=== PATIENT | female | born 1965 | race Caucasian/White ===

== ENCOUNTER 2025-05-28 14:52 | Observation (INO) ==
--- NOTE | 2025-05-28 15:31 | XRay Report ---
XR chest 1V portable CLINICAL HISTORY: Chest pain, nonspecific COMPARISON STUDY: 02/25/2023 FINDINGS: Heart size and pulmonary vasculature are normal. No consolidation or pleural effusion. No p neumothorax. IMPRESSION: No acute findings. ACT 112: Negative or not required by law. Electronically signed by: Elías Montoya M.D. 05/28/2025 3:30 PM
[2025-05-28 15:33] LABS: Hematocrit (blood only) 38.6 % (37.0-47.0); Hemoglobin 13.1 g/dl (12.0-16.0); Immature Granulocytes # (auto) 0.03 K/uL (0.01-0.20); Immature Granulocytes % (auto) 0.4 %; Mean Corpuscular Hemoglobin 27.8 pg (25.0-34.0); Mean Corpuscular Volume 81.8 fL (80.0-100.0); Platelet Count 281 K/uL (130-400); RDW Standard Deviation 43.2 fL (36.4-46.3); Red Blood Count 4.72 M/uL (4.20-5.40); White Blood Count 8.43 K/ul (4.8-10.8)
[2025-05-28 15:49] LABS: Anion Gap 9.0 (3-11); Blood Urea Nitrogen 17.0 mg/dl (6-23); Calcium 8.8 mg/dl (8.6-10.3); Carbon Dioxide 23.0 mmol/L (21-32); Chloride 108.0 mmol/L (98-107); Creatinine Clr Calc Pharmacy 90.4 ml/min; Glucose 97.0 mg/dl (70-99(Fasting)); Lipase 22.0 U/L (11-82); Potassium 3.7 mmol/L (3.5-5.1); Sodium 140.0 mmol/L (136-145)
[2025-05-28 16:04] LABS: INR 0.9 (0.9-1.1); Partial Thromboplastin Time 26 Seconds (21-31); Prothrombin Time 9.9 Seconds (9.0-12.0)
--- NOTE | 2025-05-28 16:15 | Emergency Department Note ---
History of Present Illness General Chief Complaint: Chest Pain Time Seen by Provider: 05/28/25 15:02 History of Present Illness Provider Complaint: chest pain Onset (ago): hour(s) 1 Duration: now resolved Onset: during exertion Pain Location: left chest Pain Radiation: none Severity: moderate Current Pain Intensity: 0 Quality: + sharp Relieved By: + nitroglycerin and + rest Exacerbated By: + exertion Context: no recent illness, no recent surgery, no recent immobilization, no recent travel, no trauma/injury or no history of DVT/PE Associated symptoms: no nausea, no vomiting, no dyspnea, no syncope, no palpitations, no fever, no cough or no leg swelling Treatments prior to arrival: aspirin and nitroglycerin Related Data On Oral Contraceptives: No Home Medications Medication Instructions Recorded Confirmed Type bupropion HCl 150 mg tablet,12 hr 150 mg PO BID 01/30/19 03/02/20 History sustained-release venlafaxine 150 mg 150 mg PO QAM 01/30/19 03/02/20 History capsule,extended release 24 hr Allergies Allergy/AdvReac Type Severity Reaction Status Date / Time No Known Allergies Allergy Unverified 03/02/20 15:16 Past Med/Surg History Problem List (Updated 05/28/25 @ 16:21 by Dionisio Rios MD) Chest pain (Acute) Tobacco abuse Anxiety Medical History (Updated 05/28/25 @ 16:21 by Dionisio Rios MD) Tobacco use Depression Anxiety Surgical History S/P section Family History Other Family history non-contributory Social History Smoking Status: Current every day smoker Tobacco Type: Cigarettes Hx Alcohol Use: No Hx Substance Use: No Preferred Language: Ivorian Current Living Situation: Alone current occupational status: unemployed Feels Safe at Home: No Physical Exam Vital Signs Vital Signs - 24 hr 05/28/25 14:58 05/28/25 15:30 05/28/25 15:35 Temperature 36.5 C Temperature Source Oral Pulse Rate 84 78 80 Respiratory Rate 15 21 Respiratory Effort / Characteristics Non-Labored Spontaneous Respiratory Depth Normal Respiratory Pattern Regular Blood Pressure 146/94 H 138/89 Blood Pressure Mean 111 105 Pulse Oximetry 93 93 Oxygen Delivery Method Room Air Room Air Sepsis Recent Fever Within 48 Hours No Sepsis New/Unexplained Change in Mental Status N/A Sepsis Action Taken by Nursing No Action Required 05/28/25 16:00 05/28/25 16:12 Temperature Temperature Source Pulse Rate 80 Respiratory Rate 15 Respiratory Effort / Characteristics Respiratory Depth Respiratory Pattern Blood Pressure 149/86 H Blood Pressure Mean 107 Pulse Oximetry 95 Oxygen Delivery Method Room Air Sepsis Recent Fever Within 48 Hours Sepsis New/Unexplained Change in Mental Status Sepsis Action Taken by Nursing Physical Exam GENERAL: oriented to person, place, and time. appears well-developed and well- nourished. HENT: Exam performed. - Head: Normocephalic and atraumatic. EYES: Conjunctivae and EOM are normal. Right eye exhibits no discharge. Left eye exhibits no discharge. No scleral icterus. NECK: Normal range of motion. Neck supple. No JVD present. CV: Normal rate, regular rhythm, normal heart sounds and intact distal pulses. There is no peripheral edema. Palpable radial pulses bue. PULM/CHEST: Effort normal and breath sounds normal. No respiratory distress. No stridor. no wheezes. no rales. ABD: The abdomen is soft. There is no tenderness. NEURO: Motor and sensation grossly intact. SKIN: Skin is warm and dry. He is not diaphoretic. PSYCH: normal mood and affect. Behavior is normal. Judgment and thought content normal. Course Course 1502: The patient was evaluated in room B6. A complete history and physical exam was performed Cardiac monitoring: An order was placed for continuous cardiac monitoring. The monitor shows a rate of 80 with sinus rhythm interpreted by me 1617: Vital signs stable. Patient not reporting any chest pain at this time. Labs and imaging are unremarkable. Moderate heart score. Patient will be admitted for chest pain rule out ACS. Discussed case with Sahara Wilson [facility] hospitalist team who states admit to Dr. Gonzalez. HEART Score for Major Cardiac Events from [email or web address] on 05/28/2025 All calculations should be rechecked by clinician prior to use RESULT SUMMARY: 4 points Moderate Score (4-6 points) Risk of MACE of 12-16.6%. INPUTS: History > 2 = Highly suspicious EKG > 0 = Normal Age > 1 = 45-64 Risk factors > 1 = 1-2 risk factors Initial troponin > 0 = <=ormal limit Medical Decision Making Laboratory Data Attestation: I reviewed the patient's lab results. 05/28/25 15:15 05/28/25 15:15 Labs: Lab Results 05/28/25 Range/Units 15:15 WBC 8.43 (4.8-10.8) K/ul RBC 4.72 (4.20-5.40) M/uL Hgb 13.1 (12.0-16.0) g/dl Hct 38.6 (37.0-47.0) % MCV 81.8 (80.0-100.0) fL MCH 27.8 (25.0-34.0) pg MCHC 33.9 (32.0-36.0) g/dL RDW Std Deviation 43.2 (36.4-46.3) fL RDW Coeff of Natty 14.6 H (11.5-14.5) % Plt Count 281 (130-400) K/uL MPV 9.6 (9.4-12.4) fL Immature Gran % (Auto) 0.4 % Neut % (Auto) 65.3 % Lymph % (Auto) 24.1 % [place] % (Auto) 5.7 % Eos % (Auto) 3.9 % Baso % (Auto) 0.6 % Neut # (Auto) 5.51 (1.40-6.50) K/uL Lymph # (Auto) 2.03 (1.20-3.40) K/uL [place] # (Auto) 0.48 (0.11-0.59) K/uL Eos # (Auto) 0.33 (0.00-0.50) K/uL Baso # (Auto) 0.05 (0.00-0.20) K/uL Immature Gran # (Auto) 0.03 (0.01-0.20) K/uL PT 9.9 (9.0-12.0) Seconds INR 0.9 (0.9-1.1) APTT 26 (21-31) Seconds PTT Ratio 1.0 Sodium 140 (136-145) mmol/L Potassium 3.7 (3.5-5.1) mmol/L Chloride 108 H (98-107) mmol/L Carbon Dioxide 23 (21-32) mmol/L Anion Gap 9 (3-11) BUN 17 (6-23) mg/dl Creatinine 0.80 (0.6-1.2) mg/dl Est Cr Clr Drug Dosing 90.4 ml/min eGFR 84.82 BUN/Creatinine Ratio 21.3 H (10-20) Glucose 97 (70-99(Fasting)) mg/dl Calcium 8.8 (8.6-10.3) mg/dl Troponin I High Sens 3.8 (0-14) pg/ml Lipase 22 (11-82) U/L Imaging Data Chest x-ray: Attestation: I personally reviewed and interpreted this imaging study as follows: My impression: Chest x-ray negative. Airway clear. No pneumothorax. No consolidation. No cardiomegaly or cephalization.. No free air under the diaphragm. No fractures of the skeletal structures. Radiologist's impression: XR chest 1V portable CLINICAL HISTORY: Chest pain, nonspecific COMPARISON STUDY: 02/25/2023 FINDINGS: Heart size and pulmonary vasculature are normal. No consolidation or pleural effusion. No pneumothorax. IMPRESSION: No acute findings. ACT 112: Negative or not required by law. Electronically signed by: Elías Montoya M.D. 05/28/2025 3:30 PM Dictated: 05/28/25 1529 Transcribed: 05/28/25 1529 ECG Data Attestation: I personally reviewed and interpreted this ECG as follows: Rate (beats per minute): 83 Rhythm: normal sinus Findings: no ST depression, no ST elevation or no prolonged QT Additional Comments: Left ventricular hypertrophy [facility] Narrative 1502: The patient was evaluated in room B6. A complete history and physical exam was performed Cardiac monitoring: An order was placed for continuous cardiac monitoring. The monitor shows a rate of 80 with sinus rhythm interpreted by me 1617: Vital signs stable. Patient not reporting any chest pain at this time. Labs and imaging are unremarkable. Moderate heart score. Patient will be admitted for chest pain rule out ACS. Discussed case with Sahara Patel hospitalist team who states admit to Dr. Gonzalez. HEART Score for Major Cardiac Events from [email or web address] on 05/28/2025 All calculations should be rechecked by clinician prior to use RESULT SUMMARY: 4 points Moderate Score (4-6 points) Risk of MACE of 12-16.6%. INPUTS: History > 2 = Highly suspicious EKG > 0 = Normal Age > 1 = 45-64 Risk factors > 1 = 1-2 risk factors Initial troponin > 0 = <=ormal limit Impression & Plan Chest pain Discharge Plan Visit Data Chief Complaint: Chest Pain ED Provider: Dionisio Rios Discharge Problem: Chest pain Patient Disposition: Being Evaluated by Hospitalist Condition: Fair Forms Stand Alone Forms: [employer] Prescriptions Prescriptions: No Action bupropion HCl 150 mg tablet sustained-release 12 hr 150 mg PO BID venlafaxine 150 mg capsule,extended release 24hr 150 mg PO QAM Referrals Referrals: Cory Wilson [Primary Care Provider] - Discharge Problem: Chest pain Qualifiers: Chest pain type: unspecified Qualified Code(s): R07.9 - Chest pain, unspecified
--- NOTE | 2025-05-28 16:19 | History & Physical Report ---
Date of Service May 28, 2025 Assessment & Plan (1) Chest pain: (2) Tobacco use disorder: Plan: This is a 60yo F with PMH of mood disorder and tobacco use for 25+ years who presents with CP starting an hour prior to arrival. R/o ACS; risk factors include obesity, 25+ pack years still smoking 1 ppd Initial troponin negative EKG- sinus rhythm with sinus arrhythmia no ST elevation CXR- No acute findings Trend serial cardiac enzymes overnight, check 2D echo, repeat EKG in am Routine cardiology consult NPO at midnight for anticipated stress test (may need dobutamine stress given mobility issues with recent knee surgery) Lipid panel, a1c in AM (3) Anxiety: (4) Depression: Plan: Continue venlafaxine, bupropion DVT Ppx: SQ heparin Code status: FULL PCP: Steve Dispo: Observation PCU Patient seen in collaboration with Dr. Gonzalez. Please see addendum. I spent a total of 60 minutes coordinating, documenting, and providing care for this patient excluding time spent in the performance of separately billed services or time spent by another provider/QHP. History of Present Illness Chief Complaint: CP Primary Care Provider: Cory Wilson This is a 60yo F with PMH of mood disorder and tobacco use for 25+ years who presents with CP starting an hour prior to arrival. Patient was walking her dog and developed 6 out of 10 substernal chest pain with associated diaphoresis lasting for 10 minutes. Denies any radiation to arms or jaw. No nausea, vomiting or shortness of breath. Improved with rest but did not completely resolve until patient received nitro from EMS upon their arrival. Also received aspirin en route. Pain has not recurred at rest. Patient has 25+ pack-year history and continues to smoke 1 pack/day. Denies any known personal history of heart disease or family. Does describe what sounds like a cardiac stress echo performed at [facility] 10 years ago that was normal. No F/C, lightheadedness, SOB, N/V, abd pain, dysuria, diarrea or constipation. Did undergo L knee surgery in January and is trying to walk more but still with impaired mobility, deconditioning. Allergies Allergy/AdvReac Type Severity Reaction Status Date / Time No Known Allergies Allergy Unverified 03/02/20 15:16 Home Medications Medication Instructions Recorded Confirmed Type bupropion HCl 150 mg tablet,12 hr 150 mg PO BID 01/30/19 05/28/25 History sustained-release venlafaxine 150 mg 150 mg PO QAM 01/30/19 05/28/25 History capsule,extended release 24 hr Past Med/Surg History Problem List (Updated 05/28/25 @ 16:57 by Sahara Wilson PA-C) Chest pain (Acute) Anxiety Medical History (Updated 05/28/25 @ 16:57 by Sahara Wilson PA-C) Tobacco use disorder Depression Anxiety Surgical History H/O knee surgery S/P section Family History Other Diabetes Denies family history of Coronary heart disease Social History Smoking Status: Current every day smoker Tobacco Type: Cigarettes packs per day: 1; Hx Alcohol Use: No Hx Substance Use: No Preferred Language: Swazi Current Living Situation: Alone current occupational status: unemployed Feels Safe at Home: No Review of Systems Review of Systems: At least ten systems reviewed and negative except as noted in the HPI. Physical Exam Physical Exam: General Appearance: WD/WN, vitals as above, NAD, sitting up in bed, obese Head: normocephalic, atraumatic Eyes: normal inspection, PERRL ENT: external ear and nose normal, oropharynx normal Neck: normal visual inspection Respiratory: normal respiratory effort, lungs clear to auscultation, no wheeze, rales, rhonchi. No accessory muscle use Cardiovascular: regular rate, rhythm, normal peripheral pulses, trace edema. Vessels: no JVD Chest: normal inspection of chest Abdomen/GI: normal bowel sounds, soft, nontender Extremities/Musculoskeletal: no cyanosis or clubbing, extremities motor strength 5/5 Neurologic: PERRL, EOMI, accommodation nl, no face palsy, no dysarthria, CN's II-XI intact bilaterally and moves all extremities Psychiatric: A+Ox3, euthymic affect Skin: no rashes, normal color, warm/dry Results & Data Results & Data Vital Signs (Past 12 Hours) Vital Signs Temp Pulse Resp BP Pulse Ox O2 Del Method 05/28/25 16:12 80 15 95 Room Air 05/28/25 16:00 149/86 H 05/28/25 15:35 80 05/28/25 15:30 78 21 138/89 93 Room Air 05/28/25 14:58 36.5 C 84 15 146/94 H 93 Room Air Laboratory Results Short CBC 05/28/25 Range/Units 15:15 WBC 8.43 (4.8-10.8) K/ul Hgb 13.1 (12.0-16.0) g/dl Hct 38.6 (37.0-47.0) % Plt Count 281 (130-400) K/uL BMP 05/28/25 15:15 Sodium 140 Potassium 3.7 Chloride 108 H Carbon Dioxide 23 BUN 17 Creatinine 0.80 Glucose 97 Calcium 8.8 Diagnostic Findings Chest X-Ray 05/28/25 15:02 XR chest 1V portable CLINICAL HISTORY: Chest pain, nonspecific COMPARISON STUDY: 02/25/2023 FINDINGS: Heart size and pulmonary vasculature are normal. No consolidation or pleural effusion. No pneumothorax. IMPRESSION: No acute findings. ACT 112: Negative or not required by law. Electronically signed by: Elías Montoya M.D. 05/28/2025 3:30 PM ECG Additional Comments: Sinus rhythm with sinus arrhythmia 80 bpm Supervising Physician Co-Signing Physician Notes I have seen and discussed the case with the collaborating advanced practitioner. I agree with the above H&P. I have reviewed and confirmed the patients medical history, the findings on physical examination, and the patients diagnosis and treatment plan with Steve SOLORZANO and agree with the information documented. In short, Ms. Valle is a 60 yo woman with hx of depression/anxiety, and obesity admitted for ACS r/o. Patient presents with episode of exertional angina--noting substernal chest pain that resolved slightly with rest, but most notably with the nitroglycerin. Reports history of what sounds like a stress echo previously. Patient notes significant diaphoresis, nausea associated with episode. She states thats she gets intermittent pains, but nothing like this. Admit to obs for acs r/o and for possible stress testing in am. Will monitor on tele and trend trops x 3. rest of plan as above I spent a total of 15 minutes coordinating, documenting, and providing care for this patient excluding time spent in the performance of separately billed services. All of the aforementioned completed outside of collaborating with the assigned advanced practitioner for a full treatment plan. I have reviewed the advanced practitioner's documentation, and I agree with, and take responsibility for the plan of care (1) Chest pain Chest pain type: unspecified Qualified Code(s): R07.9 - Chest pain, unspecified
[2025-05-28] MEDS ORDERED: MELATONIN 3 MG TAB PO PRN (17:58)
[2025-05-28] MEDS ORDERED: NITROGLYCERIN SL 0.4 MG/TAB TAB SL PRN (17:58)
[2025-05-28] MEDS ORDERED: ACETAMINOPHEN 325 MG TAB PO PRN (17:58)
[2025-05-28] MEDS ORDERED: ONDANSETRON INJ 2 MG/ML 2 ML VIAL IV PRN (17:58)
[2025-05-28] MEDS ORDERED: POLYETHYLENE (MIRALAX) 17 GM PACK PO PRN (17:58)
[2025-05-28] MEDS: HEPARIN SOD 5,000 UNIT/0.5 ML VIAL SQ SCH (20:23)
[2025-05-29 03:45] LABS: Hematocrit (blood only) 39.7 % (37.0-47.0); Hemoglobin 13.5 g/dl (12.0-16.0); Mean Corpuscular Hemoglobin 28.0 pg (25.0-34.0); Mean Corpuscular Volume 82.4 fL (80.0-100.0); Platelet Count 281 K/uL (130-400); RDW Standard Deviation 44.4 fL (36.4-46.3); Red Blood Count 4.82 M/uL (4.20-5.40); White Blood Count 7.30 K/ul (4.8-10.8)
[2025-05-29 04:03] LABS: Anion Gap 5.0 (3-11); Blood Urea Nitrogen 15.0 mg/dl (6-23); Calcium 9.1 mg/dl (8.6-10.3); Carbon Dioxide 26.0 mmol/L (21-32); Chloride 110.0 mmol/L (98-107); Cholesterol 145.0 mg/dl (0-200); Creatinine Clr Calc Pharmacy 87.1 ml/min; Glucose 104.0 mg/dl (70-99(Fasting)); HDL Cholesterol 50.0 mg/dl; Potassium 4.0 mmol/L (3.5-5.1); Sodium 141.0 mmol/L (136-145); Triglycerides 102.0 mg/dl (0-150)
[2025-05-29 07:26] VITALS: BP 116/76; RESP 18; TEMP 97.7; O2SAT 97
[2025-05-29 07:34] LABS: Hemoglobin A1C 6.5 % (4.5-5.6)
--- NOTE | 2025-05-29 09:21 | Cardiology Consultation ---
Date of Consultation May 29, 2025 Assessment & Plan (1) Chest pain: (2) Tobacco abuse: (3) Anxiety and depression: Plan 60 year old female admitted with chest pain * EKG without acute change * High sensitivity troponin negative x 3 (3.8 -> 4.5 -> 3.7 pg/mL) * Chest x-ray without acute cardiopulmonary process * Telemetry benign. * Discomfort atypical by history * Prior imaging with atherosclerotic plaque within the bilateral carotid bifurcations. * Chronic tobacco use, COPD Recommendations: * NPO for further cardiac evaluation * Refer for dobutamine stress echocardiography * Risk factor and lifestyle modification, tobacco cessation Supervising Physician Co-Signing Physician Notes The patient was seen and personally examined. Full assessment and plan as outlined by advanced provider as above. Care and management discussed and personally endorsed 60-year-old female with atypical chest pain. Initial assessments including cardiac enzymes and EKGs without ischemia. Dobutamine stress echocardiogram negative for ischemia with normal LV systolic function at rest and stress at heart rate of 91% age-predicted maximal heart rate. No EKG changes. No cardiac symptoms during stress test Recommendations: 1. Noncardiac chest pain: Stress testing negative for ischemia would recommend treating cardiovascular risk factors as indicated. Urged tobacco cessation History of Present Illness Reason for Consultation: Chest pain rule out Requesting Physician: [facility] Hospitalist Service, Sahara Wilson PA-C Attending Physician: [facility] Hospitalist Service, Dr. Kt Rehman DO History of Present Illness Yessi Valle is a 60-year-old female who presented to [facility] ER via EMS on Wednesday, May 28, 2025 with chest discomfort. The patient notes that she took her dog outside yesterday then came back in at which time she began to feel funny, experiencing a stabbing pain in the chest, odd sensation in the head, nausea, diaphoresis, generalized unease. She notes "anxiety took over," concern regarding possible heart attack and summoned EMS. Patient describes receiving aspirin and sublingual nitroglycerin spray via EMS with resolution of discomfort after about 15 minutes. Patient notes previously having the stabbing discomfort typically associated with stress. She describes significant stressors where she lives ([facility]), with her daughter having a child about 1 month ago, and with issues related to the recent left knee replacement in January that is "still not right." No further chest pain since admission. No new or worsening shortness of breath. No change to her chronic cough. No hemoptysis or hematuria. No orthopnea, PND, or peripheral edema. No syncope. No fevers or chills. No melena or hematochezia. Past Medical and Surgical History COPD, with ongoing tobacco abuse Obstructive sleep apnea, treated with CPAP therapy GERD Anxiety Depression Status post left knee replacement Two prior C-sections Family History: Mother is alive, history of atrial fibrillation. Father at 75 with cirrhosis. Patient has 2 brothers and 2 sisters without known cardiac issues. Social History: Smoker since her teenage years, currently less than 1 pack/day. No significant alcohol. No illegal/illicit drug use. x 20 years. Lives alone at the [facility] in [place]. 3 daughters without cardiac issues. Allergies Allergy/AdvReac Type Severity Reaction Status Date / Time No Known Allergies Allergy Unverified 03/02/20 15:16 Home Medications Medication Instructions Recorded Confirmed Type bupropion HCl 150 mg tablet,12 hr 150 mg PO BID 01/30/19 05/28/25 History sustained-release venlafaxine 150 mg 150 mg PO QAM 01/30/19 05/28/25 History capsule,extended release 24 hr Patient History Medical History Tobacco use disorder Depression Anxiety Surgical History H/O knee surgery S/P section Family History Other Diabetes Denies family history of Coronary heart disease Social History Smoking Status: Current every day smoker Tobacco Type: Cigarettes packs per day: 1; Cigarettes Per Day: 20; Do You Dip or Chew Tobacco: No; Hx Alcohol Use: No Hx Substance Use: No Preferred Language: Dominican Security Incident Handler Required: No Beliefs That Will Affect Care: None Current Living Situation: Alone current occupational status: unemployed Other Information That Helps Us Care for You: No Feels Safe at Home: No Is there a partner from a previous relationship who is making you feel unsafe now?: No Safety Concerns: Feels Safe At This Time Assistive Devices: Denture - Upper, Denture - Lower and Glasses Review of Systems Review of Systems: Complete Review of Systems: Constitutional: No fevers, chills, or night sweats. HEENT: Floaters. Glasses. No cataracts, macular degeneration, or glaucoma. No history of amaurosis fugax. Pulmonary: COPD. JIMENA, CPAP therapy. No history of PE. Cardiac: Denies history of KS, CAD, CHF, arrhythmia, rheumatic fever or scarlet fever. GI/Abd: No dysphagia. No GERD. No melana or hematochezia. No kidney problems. No liver problems. No history of pancreatic issues. Vascular: No history of carotid artery disease, AAA, or lower extremity claudication/PAD. Hematologic: No coagulation disorder, anemia, or abnormal bleeding. Musculoskeletal: Arthritis. Skin: No rash. Neurologic: Denies history of TIA/CVA. Denies history of seizure Female : Two prior c-sections. Endocrine: Denies history of diabetes mellitus. Denies thyroid trouble. Complete Review of Systems is as stated above, negative, or noncontributory Physical Exam Physical Exam: General: A&Ox3. NAD. HENT: Normocephalic. Atraumatic. Skin: Thickened. Eyes: PER. Conjunctiva pink, sclera injected Neck: No carotid bruits. No JVD. Heart: Irregular in the 70's. No murmur. Lungs: Diminished. Decreased. No rales. No wheeze. Abdomen: +BS. Soft. Nontender. No masses or organomegaly. Extremities: No clubbing, cyanosis, or edema. Limited neurological examination is without focal deficits. Pulses: radial=2/4, posterior tibial=2/4. Results & Data Vital Signs (Past 12 Hours) Vital Signs Temp Pulse Pulse Resp BP Pulse Ox O2 Del Method 05/29/25 07: 36.5 C 76 18 116/76 97 Room Air 05/29/25 03:01 36.9 C 82 20 124/80 96 Room Air 05/29/25 00:00 84 05/28/25 23:05 36.6 C 74 18 115/72 97 Room Air Laboratory Results Cardiac Enzymes 05/28/25 05/28/25 05/29/25 Range/Units 15:15 21:06 03:27 Troponin I High Sens 3.8 4.5 3.7 (0-14) pg/ml Coagulation 05/28/25 Range/Units 15:15 PT 9.9 (9.0-12.0) Seconds APTT 26 (21-31) Seconds Lipids 05/29/25 Range/Units 03:27 Triglycerides 102 (0-150) mg/dl Cholesterol 145 (0-200) mg/dl HDL Cholesterol 50 mg/dl Cholesterol/HDL Ratio 2.9 (0-5) CBC 05/28/25 05/29/25 Range/Units 15:15 03:27 WBC 8.43 7.30 (4.8-10.8) K/ul RBC 4.72 4.82 (4.20-5.40) M/uL Hgb 13.1 13.5 (12.0-16.0) g/dl Hct 38.6 39.7 (37.0-47.0) % Plt Count 281 281 (130-400) K/uL Neut # (Auto) 5.51 (1.40-6.50) K/uL Lymph # (Auto) 2.03 (1.20-3.40) K/uL [place] # (Auto) 0.48 (0.11-0.59) K/uL Eos # (Auto) 0.33 (0.00-0.50) K/uL Baso # (Auto) 0.05 (0.00-0.20) K/uL Comprehensive Metabolic Panel 05/28/25 05/29/25 Range/Units 15:15 03:27 Sodium 140 141 (136-145) mmol/L Potassium 3.7 4.0 (3.5-5.1) mmol/L Chloride 108 H 110 H (98-107) mmol/L Carbon Dioxide 23 26 (21-32) mmol/L BUN 17 15 (6-23) mg/dl Creatinine 0.80 0.83 (0.6-1.2) mg/dl Glucose 97 104 H (70-99(Fasting)) mg/dl Calcium 8.8 9.1 (8.6-10.3) mg/dl Intake and Output 05/28/25 05/29/25 05/29/25 22:59 06:59 14:59 Intake Total 300 / 600 Balance 300 / 600 Intake: Oral 300 / 300 Other: Other Intake Source NPO # Unmeasured Voids 1 1 Weight 103.5 kg 103.6 kg Weight Measurement Method [facility] Built in [facility] Diagnostic Findings EKG on presentation revealed normal sinus rhythm with a ventricular rate of 83 bpm, without acute ST segment change. High-sensitivity troponin negative x 3 (3.8 -> 4.5 -> 3.7 pg/mL). Chest x-ray without acute cardiopulmonary findings. Inpatient wool carder reveals sinus with sinus arrhythmia, ? wandering atrial pacemaker. LDL cholesterol 75 mg/dL. PG Care Time/CCT Total # of Minutes Spent Total Time Spent with Patient: Total time spent is greater than 50% in coordination of care (as documented) at patient's floor/unit and/or counseling patient: Coding Level of Care Code 51785 IN/OBS CONSULT LVL 5,80M Diagnoses Chest pain R07.9 Chest pain type: unspecified Tobacco abuse Z72.0 Anxiety and depression F41.9; F32.A (1) Chest pain Chest pain type: unspecified Qualified Code(s): R07.9 - Chest pain, unspecified
[2025-05-29] MEDS: VENLAFAXINE HCL XR 150 MG CAPXR PO SCH (09:47)
[2025-05-29 10:55] VITALS: PULSE 68
[2025-05-29] MEDS: METOPROLOL TARTRATE 1 MG/ML VIAL IV ONE (11:52)
[2025-05-29] MEDS: ATROPINE SULFATE 0.1 MG/ML 10ML SYR IV ONE (11:52)
[2025-05-29] MEDS: DOBUTamine HCL 12.5 MG/ML 20 ML VIAL IV ONE (11:52)
--- NOTE | 2025-05-29 13:15 | Discharge Summary ---
Discharge Summary Date of Service May 29, 2025 Principal Dx & Hospital Course #1 = Principal Diagnosis (1) Chest pain: Yessi Valle is a 60yo F with PMH of mood disorder and tobacco use for 25+ years who presented with CP starting an hour prior to her arrival in the ED. HOSPITAL COURSE: She was admitted to the telemetry unit. EKG showed sinus rhythm with sinus arrhythmia no ST elevation. CXR- showed no acute findings. Serial troponins were completed and were negative for ACS. Cardiology was consulted. A dobutamine stress test was done and was negative for ischemia. LVEF was 55%. She was counseled on smoking cessation. Her Hgb A1c was mildly elevated. She was given info on that and diet. She will follow up with her PCP. At the time of discharge her VS were stable and she was ambulating without difficulty. She had no further CP. (2) Tobacco use disorder: (3) Anxiety: (4) Depression: Notes For Next Care Provider Medication Changes From Visit / Admission HPI Per Admitting Provider This is a 60yo F with PMH of mood disorder and tobacco use for 25+ years who p resents with CP starting an hour prior to arrival. Patient was walking her dog and developed 6 out of 10 substernal chest pain with associated diaphoresis lasting for 10 minutes. Denies any radiation to arms or jaw. No nausea, vomiting or shortness of breath. Improved with rest but did not completely resolve until patient received nitro from EMS upon their arrival. Also received aspirin en route. Pain has not recurred at rest. Patient has 25+ pack-year history and continues to smoke 1 pack/day. Denies any known personal history of heart disease or family. Does describe what sounds like a cardiac stress echo performed at [facility] 10 years ago that was normal. No F/C, lightheadedness, SOB, N/V, abd pain, dysuria, diarrea or constipation. Did undergo L knee surgery in January and is trying to walk more but still with impaired mobility, deconditioning. See complete H&P for further details Discharge Exam General- adult female in NAD Head- atraumatic Eyes- PERRL, EOMI, anicteric ENT- oropharynx clear Neck- supple, no JVD, no adenopathy, no thyromegaly; carotids +2/2, no bruits appreciated Lungs- clear to auscultation and percussion Heart- regular rhythm; no murmur, no gallop, no rub appreciated Abdomen- normal bowel sounds, soft, nontender, no masses or hepatosplenomegaly Extremities- no pretibial edema, no calf tenderness; peripheral pulses intact Neuro- alert, oriented x 3; PERRL, EOMI; no facial palsy; no dysarthria; motor 5/5 bilaterally; Skin- warm & dry Updated Medication List Medication Instructions Recorded Confirmed Type bupropion HCl 150 mg tablet,12 hr 150 mg PO BID 01/30/19 05/28/25 History sustained-release venlafaxine 150 mg 150 mg PO QAM 01/30/19 05/28/25 History capsule,extended release 24 hr Hospital Stay Data Consultations 05/28/25 16:11 ED Decision to Admit Stat 05/29/25 07:45 Consult Cardiology Routine Pending Results Patient Have Any Pending Studies at Discharge: No Discharge Instructions Given to Patient (Per Discharging Provider) Continue orthopedic post op instructions F/U with PCP to discuss your elevated Hgb A1C Total Time Total Time Spent Total Time Spent (In Minutes): I spent a total of 37 minutes coordinating, documenting, and providing care for this patient
--- NOTE | 2025-05-31 14:50 | Electrocardiogram Report ---
Test Reason : Blood Pressure : */* mmHG Vent. Rate : 75 BPM Atrial Rate : 75 BPM P-R Int : 142 ms QRS Dur : 90 ms QT Int : 400 ms P-R-T Axes : 47 12 36 degrees QTcB Int : 446 ms Normal sinus rhythm Normal ECG When compared with ECG of 28-May-2025 15:00, (unconfirmed) No significant change was found Confirmed by Wil Mckeon ([id number]) on 05/31/2025 2:50:34 PM Referred By: REFERRED SELF Confirmed By: Wil Mckeon
--- NOTE | 2025-06-01 06:49 | Electrocardiogram Report ---
Test Reason : Blood Pressure : */* mmHG Vent. Rate : 83 BPM Atrial Rate : 83 BPM P-R Int : 142 ms QRS Dur : 90 ms QT Int : 392 ms P-R-T Axes : 38 1 30 degrees QTcB Int : 460 ms Normal sinus rhythm with sinus arrhythmia Minimal voltage criteria for LVH, may be normal variant ( R in aVL ) Cannot rule out Anterior infarct , age undetermined Abnormal ECG When compared with ECG of 25-Feb-2023 11:50, No significant change was found Confirmed by Wil Mckeon ([id number]) on 06/01/2025 6:48:36 AM Referred By: REFERRED SELF Confirmed By: Wil Mckeon
== END 2025-05-29 14:30 | disposition home or self-care (01) ==
LOC: ED 14:52 → 2S 14:52 → SUATTDRO 16:25 → 2S 17:16